=== PATIENT | female | born 1955 | race Caucasian/White ===

== ENCOUNTER 2020-10-15 13:35 | Inpatient (IN) | payer OTHER ==
[2020-10-15] MEDS ORDERED: NA CHLORIDE 0.9% 1,000 ML ONE (15:08)
[2020-10-15] MEDS ORDERED: dexAMETHasone 10 MG/ML VIAL ONE (15:08)
[2020-10-15] MEDS ORDERED: MAGNESIUM SULFATE 1 gm IVPB 1 GM/100 ML BAG IV ONE (15:08)
[2020-10-15] MEDS ORDERED: ALBUTEROL INHALER 60 PUFF/8 GM IH ONE (15:14)
[2020-10-15 15:27] LABS: Absolute Lymphocytes (CBC) 0.7 K/uL (0.7-4.9); Basophils % 0.1 % (0-1.3); Hematocrit 35.9 % (36.0-45.0); Lymphocytes % 7.5 % (15.3-44.8); MPV 7.1 fL (7.6-11.3); Protime INR 1.16; RBC Red Blood Cell Count 4.47 M/uL (3.86-4.86)
[2020-10-15 15:47] LABS: ALT/SGPT 38 U/L (12-78); AST/SGOT 48 U/L (15-37); Albumin 2.8 g/dL (3.4-5.0); Alkaline Phosphatase 70 U/L (45-117); BUN Blood Urea Nitrogen 16 mg/dL (7-18); Bicarbonate 25 mmol/L (21-32); Bilirubin Direct 0.2 mg/dL (0-0.2); Bilirubin Total 0.6 mg/dL (0.2-1.0); Glucose Level 91 mg/dL (74-106); Magnesium 2.3 mg/dL (1.8-2.4); NT PRO-BNP 446 pg/mL (<125); Potassium 3.6 mmol/L (3.5-5.1); Protein, Total 7.9 g/dL (6.4-8.2); Sodium Level 135 mmol/L (136-145); Troponin (Emerg Dept Use Only) < 0.02 ng/mL (0.0-0.045)
--- NOTE | 2020-10-15 16:45 | RAD REPORT ---
EXAM DESCRIPTION: RAD - Chest Single View - 10/15/2020 4:26 pm CLINICAL HISTORY: COUGH COMPARISON: None TECHNIQUE: AP portable chest image was obtained 10/15/2020 4:26 pm . FINDINGS: Peripheral airspace opacification is present in the right upper lobe. Interstitial and pat abril alveolar opacities are present in the right lower lung field. Slightly more pronounced interstiti al and alveolar opacification seen in the mid and lower left lung field. Trachea is midline. Right he midiaphragm elevation noted. Heart and vasculature are normal. No measurable pleural effusion and no pneumothorax. No acute bony abnormality seen. No acute aortic findings suspected. IMPRESSION: Bilateral pneumonia pattern is present. In the current clinical environment, COVID-19 pneumonia would be a primary consideration.
[2020-10-15 17:36] LABS: SARS-COV-2 RT PCR POSITIVE (NEGATIVE)
--- NOTE | 2020-10-15 18:27 | ER ---
Nurse's Notes [facility] Name: Henri Holloway Age: 65 yrs Sex: Female : 1955 Arrival Date: 10/15/2020 Time: 14:23 Bed 3 Private MD: Diagnosis: Coronavirus infection, unspecified;Hypoxia Presentation: 10/15 14:24 Chief complaint: EMS states: nausea and fatigue x 1 week. Pt reports that her PCP is ss not testing her for COVID, but is treating her for it because she has all of the typical symptoms. PT reports she also has a fever and took Tylenol last at 1000. Coronavirus screen: Client denies travel out of the [place] in the last 14 days. Ebola Screen: Patient denies exposure to infectious person. Patient denies travel to an Ebola-affected area in the 21 days before illness onset. Initial Sepsis Screen: Does the patient meet any 2 criteria? No. Patient's initial sepsis screen is negative. Does the patient have a suspected source of infection? No. Patient's initial sepsis screen is negative. Risk Assessment: Do you want to hurt yourself or someone else? Patient reports no desire to harm self or others. Onset of symptoms is unknown. 14:24 Method Of Arrival: EMS: [facility] 14:24 Acuity: EDDIE 3 ss Historical: - Allergies: 18:30 No Known Allergies; tw2 - Home Meds: 18:30 hydroxychloroquine 200 mg oral tab [Active]; tw2 - PMHx: 18:30 None; tw2 - Immunization history:: Adult Immunizations up to date. - Social history:: Smoking status: Patient denies any tobacco usage or history of. Screenin:07 Abuse screen: Denies threats or abuse. Nutritional screening: No deficits noted. tw2 Tuberculosis screening: No symptoms or risk factors identified. Fall Risk None identified. Assessment: 14:29 Reassessment: provider at bedside at this time. tw2 15:20 General: Appears in no apparent distress. slender, well groomed, Behavior is calm, tw2 cooperative, appropriate for age. Pain: Complains of pain in body aches/chills. Neuro: Level of Consciousness is awake, alert, obeys commands, Oriented to person, place, time, situation. Cardiovascular: Patient's skin is warm and dry. Respiratory: Reports shortness of breath at rest on exertion cough that is non-productive, dry, hacking, Airway is patent Respiratory effort is even, unlabored, Respiratory pattern is regular, symmetrical. GI: Abdomen is flat, Reports intolerance of fluids, intolerance of food, nausea. : No signs and/or symptoms were reported regarding the genitourinary system. EENT: No signs and/or symptoms were reported regarding the EENT system. Derm: No signs and/or symptoms reported regarding the dermatologic system. Musculoskeletal: Range of motion: intact in all extremities. 15:42 Reassessment: Patient appears in no apparent distress at this time. No changes from tw2 previously documented assessment. Patient and/or family updated on plan of care and expected duration. Pain level reassessed. Patient is alert, oriented x 3, equal unlabored respirations, skin warm/dry/pink. 16:30 Reassessment: Patient appears in no apparent distress at this time. No changes from hb previously documented assessment. Patient and/or family updated on plan of care and expected duration. Pain level reassessed. Patient is alert, oriented x 3, equal unlabored respirations, skin warm/dry/pink. 17:40 Reassessment: Patient appears in no apparent distress at this time. Patient and/or hb family updated on plan of care and expected duration. Pain level reassessed. Patient is alert, oriented x 3, equal unlabored respirations, skin warm/dry/pink. 18:22 Reassessment: Patient appears in no apparent distress at this time. Patient and/or hb family updated on plan of care and expected duration. Pain level reassessed. Patient is alert, oriented x 3, equal unlabored respirations, skin warm/dry/pink. 21:05 Reassessment: Che RN admitting nurse will call back. Vital Signs: 14:24 BP 137 / 74; Pulse 99; Resp 19; Temp 101.5(TE); Pulse Ox 95% on R/A; Weight 63.96 kg; ss Height 5 ft. 5 in. (165.10 cm); Pain 0/10; 15:42 BP 147 / 63; Pulse 105; Resp 26; Pulse Ox 100% on 2 lpm NC; tw2 16:43 BP 118 / 58; Pulse 104; Resp 24; Pulse Ox 95% on 2 lpm NC; tw2 17:32 BP 135 / 70; Pulse 95; Resp 23; Temp 101.4(O); Pulse Ox 89% on R/A; dh3 17:33 Pulse Ox 94% 2 lpm ; dh3 18:22 BP 136 / 74; Pulse 99; Resp 17; Pulse Ox 93% on 2 lpm NC; hb 14:24 Body Mass Index 23.46 (63.96 kg, 165.10 cm) ED Course: 14:23 Patient arrived in ED. ss 14:23 Ren Oh PA is PHCP. [facility] 14:23 Hector Santana MD is Attending Physician. m 14:24 Arm band placed on right wrist. ss 14:24 Bed in low position. Call light in reach. Side rails up X 1. satellite project site monitor on. Pulse tw2 ox on. NIBP on. 14:26 Triage completed. ss 15:00 EKG done, by ED staff, reviewed by Ren KING. 3 15:04 Carin Busby, TO is Primary Nurse. tw2 15:05 First set of blood cultures drawn by me. Inserted saline lock: 20 gauge in right 3 antecubital area, using aseptic technique. Blood collected. 15:10 Initial lab(s) drawn, by mt, sent to lab. Second set of blood cultures drawn by me. 3 16:26 XRAY Chest (1 view) In Process Unspecified. EDMS 17:07 Basic Metabolic Panel Sent. ss 18:26 Diamante Salmon MD is Hospitalizing Provider. [facility] 19:14 Primary Nurse role handed off by Carin Busby, TO mw2 20:53 No provider procedures requiring assistance completed. IV is patent, with fluids rv infusing freely, Patient admitted, IV remains in place. 21:30 Kishore Merrill RN is Primary Nurse. rv Administered Medications: 14:55 CANCELLED (medication changed): Xopenex (3) 1.25 mg Inhalation once tw2 15:15 Drug: Decadron - Dexamethasone 10 mg Route: IVP; Site: right antecubital; tw2 17:41 Follow up: Response: No adverse reaction tw2 15:20 Drug: Magnesium Sulfate 1 grams Route: IVPB; Infused Over: 1 hrs; Site: right tw2 antecubital; 16:20 Follow up: Response: No adverse reaction; IV Status: Completed infusion; IV Intake: tw2 100ml 15:20 Drug: NS 0.9% 1000 ml Route: IV; Rate: 1 bolus; Site: right antecubital; tw2 16:30 Follow up: Response: No adverse reaction; IV Status: Completed infusion; IV Intake: tw2 1000ml 15:25 Drug: Albuterol HFA Inhaler 2 puffs Route: Inhalation; tw2 Intake: 16:20 IV: 100ml; Total: 100ml. tw2 16:30 IV: 1000ml; Total: 1100ml. tw2 Outcome: 18:26 Decision to Hospitalize by Provider. jmm 20:53 Admitted to Tele accompanied by tech, via wheelchair, room 404, Other SBAR, EKG rv 20:53 Condition: good 20:53 Instructed on the need for admit. 21:36 Patient left the ED. rv Signatures: Dispatcher [employer] EDMS Ren Oh PA PA jmm Smirch, Shelby RN RN Berna Samuel RN RN hb Wise, Tara, RN RN [facility] Verenice Mccall [facility] Donny Tripp RN TO Estevan Petty 2 Kishore Merrill RN RN rv Corrections: (The following items were deleted from the chart) 15:30 13:25 Albuterol HFA Inhaler 2 puffs Inhalation tw2 tw2
--- NOTE | 2020-10-15 18:27 | EDPHYS ---
Physician Documentation [facility] Name: Henri Holloway Age: 65 yrs Sex: Female : 1955 Arrival Date: 10/15/2020 Time: 14:23 Bed 3 Private MD: ED Physician Hector Santana HPI: 10/15 15:13 This 65 yrs old Female presents to ER via EMS with complaints of Nausea, jmm fatigue. 15:13 The patient presents to the emergency department with nausea, diarrhea. Onset: The jmm symptoms/episode began/occurred gradually, 1 week(s) ago. Possible causes: viral infection. The symptoms are aggravated by nothing. This is a 65 year old female with no chronic medical conditions that presents to the ED with complaints of diarrhea, weakness, shortness of breath beginning approx 1 week ago. Patient is currently on oral abx. Not on steroids. . Historical: - Allergies: 18:30 No Known Allergies; tw2 - Home Meds: 18:30 hydroxychloroquine 200 mg oral tab [Active]; tw2 - PMHx: 18:30 None; tw2 - Immunization history:: Adult Immunizations up to date. - Social history:: Smoking status: Patient denies any tobacco usage or history of. ROS: 15:13 Cardiovascular: Negative for chest pain, palpitations, and edema, Respiratory: Negative jmm for shortness of breath, cough, wheezing, and pleuritic chest pain. 15:13 Constitutional: Positive for fatigue, poor PO intake. 15:13 Respiratory: Positive for cough, shortness of breath. 15:13 Abdomen/GI: Positive for nausea, diarrhea. 15:13 All other systems are negative. Exam: 14:59 ECG was reviewed by the Attending Physician. jmm 15:13 Constitutional: This is a well developed, well nourished patient who is awake, alert, jmm and in no acute distress. Head/Face: atraumatic. Eyes: EOMI, no conjunctival erythema appreciated ENT: Moist Mucus Membranes Neck: Trachea midline, Supple Chest/axilla: Normal chest wall appearance and motion. Cardiovascular: Regular rate and rhythm. No edema appreciated Respiratory: Normal respirations, no respiratory distress appreciated Abdomen/GI: Non distended, soft Back: Normal ROM Skin: General appearance color normal MS/ Extremity: Moves all extremities, no obvious deformities appreciated, no edema noted to the lower extremities Neuro: Awake and alert, normal gait Psych: Behavior is normal, Mood is normal, Patient is cooperative and pleasant Vital Signs: 14:24 BP 137 / 74; Pulse 99; Resp 19; Temp 101.5(TE); Pulse Ox 95% on R/A; Weight 63.96 kg; ss Height 5 ft. 5 in. (165.10 cm); Pain 0/10; 15:42 BP 147 / 63; Pulse 105; Resp 26; Pulse Ox 100% on 2 lpm NC; tw2 16:43 BP 118 / 58; Pulse 104; Resp 24; Pulse Ox 95% on 2 lpm NC; tw2 17:32 BP 135 / 70; Pulse 95; Resp 23; Temp 101.4(O); Pulse Ox 89% on R/A; dh3 17:33 Pulse Ox 94% 2 lpm ; dh3 18:22 BP 136 / 74; Pulse 99; Resp 17; Pulse Ox 93% on 2 lpm NC; hb 14:24 Body Mass Index 23.46 (63.96 kg, 165.10 cm) ss MDM: 14:36 Patient medically screened. [facility] 18:23 Data reviewed: vital signs, nurses notes. Counseling: I had a detailed discussion with [facility] the patient and/or guardian regarding: the historical points, exam findings, and any diagnostic results supporting the discharge/admit diagnosis, lab results, radiology results, the need for further work-up and treatment in the hospital. ED course: I discussed the patient with Dr. Stenr whom accepted the patient due to hypoxia. . 10/15 14:36 Order name: Basic Metabolic Panel [facility] 10/15 14:36 Order name: CBC with Diff; Complete Time: 21:36 [facility] 10/15 14:36 Order name: LFT's; Complete Time: 16:12 [facility] 10/15 14:36 Order name: Magnesium; Complete Time: 16:12 [facility] 10/15 14:36 Order name: NT PRO-BNP; Complete Time: 16:12 [facility] 10/15 14:36 Order name: PT-INR; Complete Time: 15:40 [facility] 10/15 14:36 Order name: Troponin (emerg Dept Use Only); Complete Time: 16:12 [facility] 10/15 14:37 Order name: Basic Metabolic Panel; Complete Time: 16:12 [facility] 10/15 14:42 Order name: Procalcitonin; Complete Time: 16:26 [facility] 10/15 14:42 Order name: Lactate; Complete Time: 15:40 [facility] 10/15 14:42 Order name: Blood Culture Adult (2) [facility] 10/15 14:54 Order name: COVID-19 : Document "Date of Symptom Onset" if Symptomatic. [facility] 10/15 14:36 Order name: XRAY Chest (1 view); Complete Time: 16:55 [facility] 10/15 14:36 Order name: EKG; Complete Time: 14:37 [facility] 10/15 14:36 Order name: Cardiac monitoring; Complete Time: 15:16 [facility] 10/15 14:36 Order name: EKG - Nurse/Tech; Complete Time: 15:05 [facility] 10/15 14:36 Order name: IV Saline Lock; Complete Time: 15:05 [facility] 10/15 14:36 Order name: Labs collected and sent; Complete Time: 15:15 [facility] 10/15 14:36 Order name: O2 Per Protocol; Complete Time: 15:05 [facility] 10/15 14:36 Order name: O2 Sat Monitoring; Complete Time: 15:06 [facility] 10/15 17:30 Order name: Diet Regular; Complete Time: 17:31 10/15 17:30 Order name: COVID-19/FLU A+B; Complete Time: 17:37 [facility] 08 21:30 Order name: Manual Differential; Complete Time: 21:36 [facility] 08 17:08 Order name: Vital Signs; Complete Time: 17:40 jmm EC:59 Rate is 93 beats/min. Rhythm is regular. QRS [place] is Normal. [place] interval is normal. QRS jmm interval is normal. QT interval is normal. No Q waves. T waves are Normal. No ST changes noted. Reviewed by me. Administered Medications: 14:55 CANCELLED (medication changed): Xopenex (3) 1.25 mg Inhalation once tw2 15:15 Drug: Decadron - Dexamethasone 10 mg Route: IVP; Site: right antecubital; tw2 17:41 Follow up: Response: No adverse reaction tw2 15:20 Drug: Magnesium Sulfate 1 grams Route: IVPB; Infused Over: 1 hrs; Site: right tw2 antecubital; 16:20 Follow up: Response: No adverse reaction; IV Status: Completed infusion; IV Intake: tw2 100ml 15:20 Drug: NS 0.9% 1000 ml Route: IV; Rate: 1 bolus; Site: right antecubital; tw2 16:30 Follow up: Response: No adverse reaction; IV Status: Completed infusion; IV Intake: tw2 1000ml 15:25 Drug: Albuterol HFA Inhaler 2 puffs Route: Inhalation; tw2 Disposition: 10/15/20 18:26 Hospitalization ordered by Diamante Salmon for Observation. Preliminary diagnosis are Coronavirus infection, unspecified, Hypoxia. - Bed requested for Telemetry/MedSurg (observation). - Status is Observation. rv - Condition is Stable. - Problem is new. - Symptoms are unchanged. Addendum: 10/23/2020 18:55 Co-signature as Attending Physician, Hector Santana MD. r n Signatures: Dispatcher [employer] EDCA Ren Oh PA PA [facility] Hector Santana MD MD rn Smirch, Shelby, RN RN ss Alvina Moran RN RN Carin Busby RN RN tw2 Kishore Merrill, RN RN rv Corrections: (The following items were deleted from the chart) 10/15 14:55 14:42 Xopenex (3) 1.25 mg Inhalation once ordered. [facility] tw2 16:19 14:42 Influenza Screen (A \\T\\ B)+BA.LAB.BRZ ordered. EDCA EDMS 16:20 14:55 CORONAVIRUS ordered. [facility] EDMS 20:42 18:26 Hospitalization Ordered by Diamante Salmon MD for Observation. Preliminary cg diagnosis is Coronavirus infection, unspecified; Hypoxia. Bed requested for Telemetry/MedSurg (observation). Status is Observation. Condition is Stable. Problem is new. Symptoms are unchanged. [facility] 21:36 20:42 10/15/2020 18:26 Hospitalization Ordered by Diamante Salmon MD for Observation. rv Preliminary diagnosis is Coronavirus infection, unspecified; Hypoxia. Bed requested for Telemetry/MedSurg (observation). Status is Observation. Condition is Stable. Problem is new. Symptoms are unchanged. cg
[2020-10-15] MEDS ORDERED: ALBUTEROL INHALER 60 PUFF/8 GM IH PRN (20:10)
[2020-10-15] MEDS ORDERED: AZITHROMYCIN IV 500 MG in NA CHLORIDE 0.9% 250 ML IVPB ONE (20:16)
[2020-10-15] MEDS ORDERED: CEFTRIAXONE 1 GM/NS 50 ML 1 GM/50 ML BAG IV SCH (20:24)
--- NOTE | 2020-10-15 20:29 | P.HP ---
Certification for Inpatient Patient will require the following post-hospital care: None Practitioner: I am a practitioner with admitting privileges, knowledge of patient current condition, hospital course, and medical plan of care. Services: Services provided to patient in accordance with Admission requirements found in Title 42 Section 412.3 of the Code of Federal Regulations Patient History Date of Service: 10/15/20 Reason for admission: covid 19 disease History of Present Illness: 65 y o female pt admitted for management of covid 19 disease. she had c/o fever, chills, rigor, sob and cough for a while. she was diagnosed with covid 19 disease and she was started on hydroxychloroquine by her PCP but she did not get better. she decided to come to the ER for evaluation. In the ED, she had CXR german t was concerning for viral pneumonia and she was significantly hypoxic. she was started on empiric oxygen therapy for resp failure with hypoxia and she was admitted for inpt care. Allergies No Known Allergies Allergy (Unverified 10/15/20 22:25) Home Medications: NK [No Home Meds] 10/16/20 Review of Systems General: Fever, Chills, Weakness Eyes: Unremarkable Respiratory: Cough, Shortness of Breath, SOB with Excertion Cardiovascular: Chest Pain Gastrointestinal: Unremarkable Genitourinary: Unremarkable Integumentary: Unremarkable Neurological: Unremarkable Physical Examination - Physical Exam General: Alert, Oriented x3 HEENT: Atraumatic, Normocephalic Neck: Supple Respiratory: Diminished Cardiovascular: No edema, Regular rate/rhythm, Normal S1 S2 Gastrointestinal: Normal bowel sounds Musculoskeletal: No swelling Neurological: Normal speech, Normal strength at 5/5 x4 extr, Cranial nerves 3-12 intact - Studies Laboratory Data (last 24 hrs) 10/15/20 15:10: PT 13.4 H, INR 1.16 10/15/20 15:10: WBC 9.20, Hgb 12.3, Hct 35.9 L, Plt Count 277 10/15/20 15:10: Sodium 135 L, Potassium 3.6, BUN 16, Creatinine 0.74, Glucose 91, Magnesium 2.3, Total Bilirubin 0.6, AST 48 H, ALT 38, Alkaline Phosphatase 70 Assessment and Plan - Plan 1.COVID 19 disease-Diagnosed as outpt. we will start dexamethasone and zinc, vit c, she will be evaluated for possibility of remdesivir therapy. 2.Resp failure with hypoxia-on supplemental oxygen. we will have breathing treatment on board. we will wean off oxygen as tolerated. 3.Pneumonia-suspected based on clinical presentation. we will start empiric antibiotics of azithromycin and ceftriaxone. Discharge Plan: Home - Advance Directives Does patient have a Living Will: No Does patient have a Durable POA for Healthcare: No - Code Status/Comfort Care Code Status: Full Code
[2020-10-15 21:30] LABS: Blood Morphology Comment NOT SEEN (NOT SEEN); Platelet Estimate ADEQ
[2020-10-15] MEDS ORDERED: ZOLPIDEM TARTRATE 5 MG TABLET PO PRN (21:42)
[2020-10-15] MEDS ORDERED: ACETAMINOPHEN 500 MG TAB PO PRN (21:42)
[2020-10-15] MEDS ORDERED: dexAMETHasone 10 MG/ML VIAL IV SCH (22:00)
[2020-10-15 22:10] VITALS: BMI 23.6
[2020-10-15] MEDS ORDERED: CEFTRIAXONE/SWI 1gm 1 GM/10 ML SYR IV SCH (23:00)
[2020-10-16 04:24] LABS: Absolute Lymphocytes (CBC) 0.4 K/uL (0.7-4.9); Basophils % 0.1 % (0-1.3); Hematocrit 34.6 % (36.0-45.0); MPV 7.2 fL (7.6-11.3); RBC Red Blood Cell Count 4.36 M/uL (3.86-4.86)
[2020-10-16 04:46] LABS: Albumin 2.6 g/dL (3.4-5.0); Bilirubin Total 0.4 mg/dL (0.2-1.0); Protein, Total 7.6 g/dL (6.4-8.2)
[2020-10-16] MEDS: INSULIN -REGULAR HUMAN 50 UNIT/0.5 ML ML SQ SCH ×4 (07:30→21:00)
[2020-10-16] MEDS: ASCORBIC ACID 500 MG TABLET PO SCH (08:01)
[2020-10-16] MEDS: ZINC SULFATE 220 MG CAP PO SCH (08:01)
[2020-10-16] MEDS: ENOXAPARIN 40 MG/0.4 ML SQ SCH ×2 (08:02→08:07)
[2020-10-16] MEDS ORDERED: CEFTRIAXONE 1 GM/NS 50 ML 1 GM/50 ML BAG IV SCH (09:00)
[2020-10-16] MEDS: dexAMETHasone 10 MG/ML VIAL IV SCH (17:14)
--- NOTE | 2020-10-16 18:43 | EKG ---
Test Date: 2020-10-15 Test Time: 14:55:35 Curb Attendant: DAVID MEASUREMENT RESULTS: Intervals: Rate: 93 VT: 158 QRSD: 90 QT: 342 QTc: 425 Guin: P: 54 VT: 158 QRS: 53 T: 70 INTERPRETIVE STATEMENTS: Normal sinus rhythm Normal ECG Compared to ECG 09/17/1994 16:25:00 Sinus arrhythmia no longer present Electronically Signed On 10-16-20 18:40:28 CHAIN DYER by Jovi Thompson
--- OUTSIDE RECORDS SUMMARY | 2020-10-16 23:00 | XMS REPORT | Clinical Summary ---
:1955 Author Organization [facility] Address [address] [place] [address] Care Team Providers Name Role Phone Asked, Pcp Primary Care Provider Unavailable Allergies No Known Active Allergies Medications Medication Sig Dispensed Refills Start Date End Date Status ascorbic acid, vitamin Take 1,000 mg by 0 Active C, (vitamin C) 100 MG mouth daily. tablet cholecalciferol, vitamin Take 1,000 Units 0 Active D3, 1,000 unit tablet by mouth daily. zinc 50 mg tablet Take 50 mg by 0 Active mouth 2 (two) times a day. rosuvastatin (CRESTOR) 5 Take 5 mg by 0 Active mg tablet mouth daily. calcium Chew. 0 Active carbonate-vitamin D3 (Calcium 600 with Vitamin D3) 600 mg(1,500mg) -400 unit tablet,chewable Active Problems Not on file Encounters Date Type Specialty Care Team Description 08/09/2020 Hospital Encounter Radiology Jason Harrington MD 08/09/2020 Office Visit Neurosurgery Jason Harrington MD Cervical spondylosis with myelopathy (Primary Dx) 08/09/2020 Travel 07/27/2020 Travel 07/12/2020 Travel after 10/16/2019 Surgical History Surgery Date Site/Laterality Comments LAMINECTOMY AND MICRODISCECTOMY LUMBAR 09/07/1999 - 09/06/2000 SPINE Family History Medical History Relation Name Comments Heart disease Father Leukemia Father Heart disease Mother Relation Name Status Comments Father Mother Social History Tobacco Use Types Packs/Day Years Used Date Never Smoker Smokeless Tobacco: Never Used Alcohol Use Drinks/Week oz/Week Comments Defer Sex Assigned at Date Recorded Not on file Job Start Date Occupation Industry Not on file Not on file Not on file Last Filed Vital Signs Vital Sign Reading Time Taken Comments Blood Pressure 125/83 08/09/2020 11:06 AM [employer] Pulse - - Temperature - - Respiratory Rate - - Oxygen Saturation - - Inhaled Oxygen Concentration - - Weight 65.8 kg (145 lb) 08/09/2020 11:06 AM [employer] Height 165.1 cm (5' 5") 08/09/2020 11:06 AM [employer] Body Mass Index 24.13 08/09/2020 11:06 AM [employer] Plan of Treatment Health Maintenance Due Date Last Done Comments COVID-19 VACCINE (1 of 2) 1969 HEPATITIS C SCREENING 1971 BREAST CANCER SCREENING 2003 COLONOSCOPY SCREENING 2003 SHINGLES VACCINES (#1) 2003 65+ PNEUMOCOCCAL VACCINE (1 of 1 - PPSV23) 2018 INFLUENZA VACCINE 04/07/2020 Results Not on fileafter 10/16/2019 Insurance Payer Benefit Plan / Subscriber ID Effective Dates Phone Addre ss Type Group MEDICARE MEDICARE PART A [id number] 2018-Present [place], [place] Medicare AND B Guarantor Name Account Type Relation to Date of Phone Billing Patient Address Henri Holloway Personal/Family Self 1955 [address] [facility] (Home) [place] [address] Henri Holloway [employer] Party Self 1955 [address] [facility] [employer] (Home) [place] [address] Advance Directives For more information, please contact: [phone] Type Date Recorded Patient Campus Chaplain Explanati on Advance Directives, Living Will and Medical Power of Director Energy
--- OUTSIDE RECORDS SUMMARY | 2020-10-16 23:00 | XMS REPORT | Continuity of Care Document ---
:1955 Author Organization [facility] t Address [address] [place] [address] Care Team Providers Name Role Phone Asked, Pcp Primary Care Physician Unavailable Ben Harrington MD Attending Clinician Payers Payer Name Policy Type Policy Effective Date Expiration Date Sour ce Number MEDICAREMEDICARE PART [id number] 2018 Wiliam Orellana AND 00:00:00 [facility] [id number] [place] [facility] [place] This patient has no known problems. Allergies, Adverse Reactions, Alerts This patient has no known allergies or adverse reactions. Family History Family Member Diagnosis Comments Start Date Stop Date Source Natural father Heart disease [place] [facility] Natural father Leukemia [facility] Natural mother Heart disease [facility] Social History Social Habit Start Date Stop Date Quantity Comments Source Sex Assigned At [facility]i Tobacco use and 2020-08-09 2020-08-09 Never used [facility]ist exposure 00:00:00 00:00:00 Alcohol intake 2020-08-09 2020-08-09 [facility] thodist 00:00:00 00:00:00 Smoking Status Start Date Stop Date Source Never smoker [facility] Medications Ordered Filled Start Stop Current Ordering Indication Dosage Frequency Signature Comments Components Source Medication Medication Date Date Medication? Clinician (SIG) Name Name ascorbic 2019-09 Yes 1000mg QD Take 1,000 [place] acid, 2-03 mg by [facility] vitamin C, 11:11: mouth st (vitamin C) 00 daily. 100 MG tablet cholecalcif 2019-09 Yes 1000U QD Take 1,000 [place] александр, 2-03 Units by [facility] vitamin D3, 11:11: mouth st 1,000 unit 00 daily. tablet zinc 50 mg 2019-09 Yes 50mg Q.5D Take 50 mg [place] tablet 03 by mouth 2 [facility] 11:11: (two) st 00 times a day. rosuvastati 2019-09 Yes 5mg QD Take 5 mg [place] n (CRESTOR) 10-10 by mouth Meth tika 5 mg tablet 11:11: daily. st 00 calcium 2019-09 Yes Chew. [place] carbonate-v 10-10 [facility] itamin D3 11:11: st (Calcium 00 600 with Vitamin D3) 600 mg(1,500mg) -400 unit tablet,chew able Vital Signs Vital Name Observation Time Observation Value Comments Source Systolic blood 2020-08-09 11:06:00 125 mm[Hg] [facility] pressure Diastolic blood 2020-08-09 11:06:00 83 mm[Hg] Cherie boss [facility] pressure Body height 2020-08-09 11:06:00 165.1 cm Bucky Mcconnell Body weight 2020-08-09 11:06:00 65.772 kg Bucky Mcconnell BMI 2020-08-09 11:06:00 24.13 kg/m2 [place] [facility] Procedures This patient has no known procedures. Plan of Care Planned Activity Planned Date Details Comments Source Future Scheduled 2020-04-07 INFLUENZA VACCINE [facility] Test 00:00:00 [code = INFLUENZA VACCINE] Future Scheduled 2018 65+ PNEUMOCOCCAL [place] [facility] Test 00:00:00 VACCINE (1 of 1 - PPSV23) [code = 65+ PNEUMOCOCCAL VACCINE (1 of 1 - PPSV23)] Future Scheduled 2003 [facility] [code = BREAST CANCER SCREENING] Future Scheduled 2003 COLONOSCOPY SCREENING [facility] [employer] [facility] Test 00:00:00 [code = COLONOSCOPY SCREENING] Future Scheduled 2003 SHINGLES VACCINES (#1) [place] [facility] Test 00:00:00 [code = SHINGLES VACCINES (#1)] Future Scheduled 1971 Hepatitis C screening [facility] [employer] [facility] Test 00:00:00 (procedure) [code = 548926251] Future Scheduled 1969 COVID-19 VACCINE (1 of [facility] [place] [facility] Test 00:00:00 2) [code = COVID-19 VACCINE (1 of 2)] Encounters Start End Encounter Admission Attending Care Care Encounter Source Date/Time Date/Time Type Type Clinicians Facility Department ID 2020-08-09 2020-08-09 Outpatient [facility] [id number] [place] 00:00:00 00:00:[address] 2020-08-09 2020-08-09 Outpatient [facility] [id number] [place] 00:00:00 00:00:[address] Results This patient has no known results.
[2020-10-17] MEDS: INSULIN -REGULAR HUMAN 50 UNIT/0.5 ML ML SQ SCH ×4 (07:30→20:45)
[2020-10-17] MEDS: ZINC SULFATE 220 MG CAP PO SCH (08:48)
[2020-10-17] MEDS: ASCORBIC ACID 500 MG TABLET PO SCH (08:48)
[2020-10-17] MEDS: ENOXAPARIN 40 MG/0.4 ML SQ SCH (08:50)
[2020-10-17] MEDS: dexAMETHasone 10 MG/ML VIAL IV SCH (17:43)
[2020-10-18 05:31] LABS: Absolute Lymphocytes (CBC) 0.5 K/uL (0.7-4.9); Basophils % 0.1 % (0-1.3); Hematocrit 33.2 % (36.0-45.0); Lymphocytes % 5.9 % (15.3-44.8); MPV 7.3 fL (7.6-11.3); RBC Red Blood Cell Count 4.08 M/uL (3.86-4.86)
[2020-10-18 05:51] LABS: Albumin 2.4 g/dL (3.4-5.0); Bilirubin Total 0.4 mg/dL (0.2-1.0); C-Reactive Protein 38.9 mg/L (<3.00); Ferritin 575.2 ng/mL (8-388); Magnesium 2.7 mg/dL (1.8-2.4); Phosphorus 4.4 mg/dL (2.5-4.9); Potassium 4.2 mmol/L (3.5-5.1); Protein, Total 6.9 g/dL (6.4-8.2)
[2020-10-18] MEDS: INSULIN -REGULAR HUMAN 50 UNIT/0.5 ML ML SQ SCH ×4 (07:30→21:00)
[2020-10-18] MEDS: ENOXAPARIN 40 MG/0.4 ML SQ SCH ×2 (08:25→08:44)
[2020-10-18] MEDS: ASCORBIC ACID 500 MG TABLET PO SCH (08:25)
[2020-10-18] MEDS: ZINC SULFATE 220 MG CAP PO SCH (08:25)
[2020-10-18] MEDS: dexAMETHasone 10 MG/ML VIAL IV SCH (17:10)
[2020-10-19 06:56] LABS: Absolute Lymphocytes (CBC) 0.7 K/uL (0.7-4.9); Basophils % 0.1 % (0-1.3); Hematocrit 37.9 % (36.0-45.0); Lymphocytes % 7.4 % (15.3-44.8); MPV 6.9 fL (7.6-11.3); RBC Red Blood Cell Count 4.72 M/uL (3.86-4.86)
[2020-10-19 07:13] LABS: BUN Blood Urea Nitrogen 16 mg/dL (7-18); Bicarbonate 26 mmol/L (21-32); Ferritin 518.3 ng/mL (8-388); Glucose Level 104 mg/dL (74-106); Magnesium 2.7 mg/dL (1.8-2.4); NT PRO-BNP 393 pg/mL (<125); Phosphorus 3.9 mg/dL (2.5-4.9); Potassium 4.2 mmol/L (3.5-5.1); Sodium Level 138 mmol/L (136-145)
[2020-10-19] MEDS: INSULIN -REGULAR HUMAN 50 UNIT/0.5 ML ML SQ SCH ×4 (07:30→21:00)
[2020-10-19] MEDS: ENOXAPARIN 40 MG/0.4 ML SQ SCH (09:00)
[2020-10-19] MEDS: ASCORBIC ACID 500 MG TABLET PO SCH (09:00)
[2020-10-19] MEDS: ZINC SULFATE 220 MG CAP PO SCH (09:19)
--- NOTE | 2020-10-19 16:16 | RAD REPORT ---
EXAM DESCRIPTION: CT - Chest For Pe Angio - 10/19/2020 4:05 pm CLINICAL HISTORY: Chest pain. covid; HYPOXEMIA; sob COMPARISON: Chest Single View dated 10/15/2020 TECHNIQUE: CT angiogram of the pulmonary arteries was performed with MIP. All CT scans are performed using dose optimization technique as appropriate and may include automated exposure control or mA/KV adjustment according to patient size. FINDINGS: No evidence of pulmonary thromboembolism. No acute aortic finding demonstrated. Moderate interstitial and airspace opacity is seen throughout both lungs, greater on the right, likel y related to underlying COVID-19 infection. No significant pericardial or pleural fluid. No concerning bony finding. IMPRESSION: No evidence of pulmonary thromboembolism. Moderate opacities in both lungs, greater on the right, likely related to COVID-19 infection.
[2020-10-19] MEDS: ENOXAPARIN 60 MG/0.6 ML SQ SCH ×2 (16:38→22:50)
[2020-10-19] MEDS: dexAMETHasone 10 MG/ML VIAL IV SCH (17:11)
--- NOTE | 2020-10-19 22:53 | P.PN ---
Subjective Date of Service: 10/16/20 patient is feeling better. Patient denies any new complaints. However she does appear little more tachypneic and she also has decreasing oxygen saturation. We will continue to monitor closely. Review of Systems 10-point ROS is otherwise unremarkable Physical Examination - Vital Signs Temperature: 98.5 F Blood Pressure: 107/58 Pulse: 84 Respirations: 16 Pulse Ox (%): 95 - Physical Exam General: Alert, In no apparent distress, Oriented x3 Respiratory: Clear to auscultation bilaterally, Normal air movement Cardiovascular: Regular rate/rhythm, Normal S1 S2, No murmurs Gastrointestinal: Normal bowel sounds, Soft and benign, Non-distended, No tenderness, No rebound, No guarding Musculoskeletal: No tenderness - Studies Medications List Reviewed: Yes Assessment & Plan - Problems (Diagnosis) (1) Pneumonia due to COVID-19 virus Status: Acute - Plan Plan: 1. Monitor labs closely; we will need to monitor inflammatory markers 2. Continue with Dexamethasone 6 mg IVP daily 3. Holding anticoagulation at this time per patient's wishes 4. O2 per protocol; 5. Will go ahead start arrange for home oxygen 6. GI prophylaxis - Advance Directives Does patient have a Living Will: No Does patient have a Durable POA for Healthcare: No - Code Status/Comfort Care Code Status: Full Code
--- NOTE | 2020-10-19 22:56 | P.PN ---
Date of Service: 10/17/20 Subjective Patient is feeling better. Patient denies any new complaints. However she does appear little more tachypneic and she also has decreasing oxygen saturation. We will continue to monitor closely. Review of Systems 10-point ROS is otherwise unremarkable Physical Examination - Vital Signs Reviewed - Physical Exam General: Alert, In no apparent distress, Oriented x3 Respiratory: Clear to auscultation bilaterally, Normal air movement Cardiovascular: Regular rate/rhythm, Normal S1 S2, No murmurs Gastrointestinal: Normal bowel sounds, Soft and benign, Non-distended, No tenderness, No rebound, No guarding Musculoskeletal: No tenderness Assessment & Plan - Problems (Diagnosis) (1) Pneumonia due to COVID-19 virus Current Visit: Yes Status: Acute - Plan Plan: Continue with POC 1. Monitor labs closely 2. Dexamethasone 6 mg IVP daily 3. Patient refused anticoagulation at this time. Does not really want any additional medications that she has never really needed medications before. She has hemorrhoidal bleeding so does not want anticoagulants 4. O2 per protocol; 6. Check labs including ferritin, CRP, D-dimer, lactic acid, LDH, procalcitonin 7. GI prophylaxis
--- NOTE | 2020-10-19 22:58 | P.PN ---
Date of Service: 10/18/20 Subjective patient was scheduled to go home; however, oxygen requirements are increasing. She is satting about 86-89% on 4 L. I personally do not believe it is safe for her to go home. She really does not want to stay in the hospital any longer. She will probably need to leave against medical advice at this point. Review of Systems 10-point ROS is otherwise unremarkable Physical Examination - Vital Signs Reviewed - Physical Exam General: Alert, In no apparent distress, Oriented x3 Respiratory: Diminished with rhonchi at bases Cardiovascular: Regular rate/rhythm, Normal S1 S2, No murmurs Gastrointestinal: Normal bowel sounds, Soft and benign, Non-distended, No tenderness, No rebound, No guarding Musculoskeletal: No tenderness Assessment & Plan - Problems (Diagnosis) (1) Pneumonia due to COVID-19 virus Current Visit: Yes Status: Acute - Plan Plan: Continue with POC 1. Monitor labs closely 2. Dexamethasone 6 mg IVP daily 3. Patient still refusing anticoagulation at this time. No additional medications 4. O2 per protocol; 6. Check labs including ferritin, CRP, D-dimer, lactic acid, LDH, procalcitonin 7. GI prophylaxis
--- NOTE | 2020-10-19 23:02 | P.PN ---
Date of Service: 10/19/20 Subjective D-dimer elevated; patient willing to comply with requests for CT and additional testing Review of Systems 10-point ROS is otherwise unremarkable Physical Examination - Vital Signs Reviewed - Physical Exam General: Alert, In no apparent distress, Oriented x3 Respiratory: Basilar rhonchi Cardiovascular: Regular rate/rhythm, Normal S1 S2, No murmurs Gastrointestinal: Normal bowel sounds, Soft and benign, Non-distended, No tenderness, No rebound, No guarding Musculoskeletal: No tenderness Assessment & Plan - Problems (Diagnosis) (1) Pneumonia due to COVID-19 virus Current Visit: Yes Status: Acute - Plan Plan: Continue with POC 1. CT pending 2. Dexamethasone 6 mg IVP daily 3. Started lovenox 1mg/kg q12h 4. O2 per protocol; 6. Check labs including ferritin, CRP, D-dimer, lactic acid, LDH, procalcitonin 7. GI prophylaxis
[2020-10-20 06:28] LABS: Absolute Lymphocytes (CBC) 0.7 K/uL (0.7-4.9); Basophils % 0.1 % (0-1.3); Hematocrit 34.9 % (36.0-45.0); Lymphocytes % 8.5 % (15.3-44.8); MPV 6.8 fL (7.6-11.3); RBC Red Blood Cell Count 4.37 M/uL (3.86-4.86)
[2020-10-20 07:14] LABS: BUN Blood Urea Nitrogen 16 mg/dL (7-18); Bicarbonate 25 mmol/L (21-32); Ferritin 520.4 ng/mL (8-388); Glucose Level 114 mg/dL (74-106); Magnesium 2.5 mg/dL (1.8-2.4); NT PRO-BNP 255 pg/mL (<125); Phosphorus 4.3 mg/dL (2.5-4.9); Potassium 4.5 mmol/L (3.5-5.1); Sodium Level 138 mmol/L (136-145)
[2020-10-20] MEDS: INSULIN -REGULAR HUMAN 50 UNIT/0.5 ML ML SQ SCH ×4 (07:30→20:56)
[2020-10-20] MEDS: ENOXAPARIN 60 MG/0.6 ML SQ SCH ×2 (08:24→20:27)
[2020-10-20] MEDS: ZINC SULFATE 220 MG CAP PO SCH (08:24)
[2020-10-20] MEDS: ASCORBIC ACID 500 MG TABLET PO SCH (08:24)
[2020-10-20] MEDS: dexAMETHasone 10 MG/ML VIAL IV SCH (17:14)
[2020-10-21] MEDS: ASCORBIC ACID 500 MG TABLET PO SCH (07:44)
[2020-10-21] MEDS: ZINC SULFATE 220 MG CAP PO SCH (07:45)
[2020-10-21] MEDS: ENOXAPARIN 60 MG/0.6 ML SQ SCH (07:45)
[2020-10-21 14:19] VITALS: O2SAT 92
--- NOTE | 2020-11-05 05:37 | P.PN ---
Date of Service: 10/20/20 Subjective Patient is clinically doing well with no new complaints. Review of Systems 10-point ROS is otherwise unremarkable Physical Examination - Vital Signs Reviewed - Physical Exam General: Alert, In no apparent distress, Oriented x3 Respiratory: Basilar rhonchi Cardiovascular: Regular rate/rhythm, Normal S1 S2, No murmurs Gastrointestinal: Normal bowel sounds, Soft and benign, Non-distended, No tenderness, No rebound, No guarding Musculoskeletal: No tenderness Assessment & Plan - Problems (Diagnosis) (1) Pneumonia due to COVID-19 virus Current Visit: Yes Status: Acute - Plan Plan: Continue with POC 1. CT with bilateral infiltrates 2. Dexamethasone 6 mg IVP daily- start weaning off 3. Continue lovenox 1mg/kg q12h 4. O2 per protocol; 6. Monitor inflammatory markers 7. GI prophylaxis
--- NOTE | 2020-11-05 05:41 | P.DS ---
Discharge Date: 10/21/20 Disposition: ROUTINE DISCHARGE Discharge Condition: GOOD Reason for Admission: covid 19 disease - Problems (1) Pneumonia due to COVID-19 virus Status: Acute Brief History of Present Illness: Patient is a 65 yo female pt admitted for management of covid 19 disease. she had c/o fever, chills, rigor, sob and cough for a while. she was diagnosed with covid 19 disease and she was started on hydroxychloroquine by her PCP but she did not get better. she decided to come to the ER for evaluation. In the ED, she had CXR that was concerning for viral pneumonia and she was significantly hypoxic. she was started on empiric oxygen therapy for resp failure with hypoxia and she was admitted for inpt care. Hospital Course: Patient has been well during hospital stay. Currently on 2 L of oxygen. Arrange for home oxygen and discharged home with prednisone, inhaler, cough medication, and rhythmic 10. Outpatient followup. Return to the Emergency room if symptoms worsen Vital Signs/Physical Exam: Temp Pulse Resp BP Pulse Ox 98.2 F 84 18 113/79 92 10/21/20 12:00 10/21/20 12:00 10/21/20 12:00 10/21/20 12:00 10/21/20 12:00 General: Alert, In no apparent distress, Oriented x3 Laboratory Data at Discharge: WBC 8.80 K/uL (4.3-10.9) 10/20/20 06:10 Hgb 11.8 g/dL (12.0-15.0) L 10/20/20 06:10 Hct 34.9 % (36.0-45.0) L 10/20/20 06:10 Plt Count 452 K/uL (152-406) H 10/20/20 06:10 PT 13.4 SECONDS (9.5-12.5) H 10/15/20 15:10 INR 1.16 10/15/20 15:10 Sodium 138 mmol/L (136-145) 10/20/20 06:10 Potassium 4.5 mmol/L (3.5-5.1) 10/20/20 06:10 BUN 16 mg/dL (7-18) 10/20/20 06:10 Creatinine 0.48 mg/dL (0.55-1.3) L 10/20/20 06:10 Glucose 114 mg/dL (74-106) H 10/20/20 06:10 Phosphorus 4.3 mg/dL (2.5-4.9) 10/20/20 06:10 Magnesium 2.5 mg/dL (1.8-2.4) H 10/20/20 06:10 Total Bilirubin 0.4 mg/dL (0.2-1.0) 10/18/20 05:12 AST 52 U/L (15-37) H 10/18/20 05:12 ALT 81 U/L (12-78) H 10/18/20 05:12 Alkaline Phosphatase 65 U/L (45-117) 10/18/20 05:12 Home Medications: Albuterol Inhaler [Ventolin Inhaler*] 2 puff IH Q6H PRN #1 hfa.aer.ad 10/17/20 Benzonatate [Tessalon Perle] 200 mg PO TID #30 cap 10/17/20 Zinc Sulfate [Zinc Sulfate*] 220 mg PO DAILY #30 cap 10/17/20 predniSONE [Prednisone*] 20 mg PO BID #15 tab 10/17/20 Apixaban [Eliquis] 2.5 mg PO BID #14 tablet 10/20/20 New Medications: Apixaban [Eliquis] 2.5 mg PO BID #14 tablet predniSONE [Prednisone*] 20 mg PO BID #15 tab Benzonatate [Tessalon Perle] 200 mg PO TID #30 cap Albuterol Inhaler [Ventolin Inhaler*] 2 puff IH Q6H PRN #1 hfa.aer.ad PRN Reason: Shortness Of Breath Zinc Sulfate [Zinc Sulfate*] 220 mg PO DAILY #30 cap Diet: AHA Activity: Fall precautions Followup: Nicholas French MD [ACTIVE - CAN ADMIT] - 1-2 Weeks (vp data- call to schedule an appointment ) Giovanny Oshea MD [ACTIVE - CAN ADMIT] - 1-2 Weeks (PCP- call to schedule an appointment ) Time spent managing pt's care (in minutes): 35
[2020-11-05 05:43] VITALS: BP 107/58; TEMP 98.5
== END 2020-10-21 13:05 | disposition home or self-care (01) | DRG 177 ==
LOC: ER 13:35 → ERHOLD 20:06 → 4TH 20:56
PROVIDERS: ADMIT Internal Medicine; ATTEND Hospitalist
DX: U07.1 COVID-19 (principal); J12.82 Pneumonia due to coronavirus disease 2019; J96.01 Acute respiratory failure with hypoxia; Z79.899 Other long term (current) drug therapy
CPT/HCPCS: 0240U; 36415; 71045; 71275; 80048; 80053; 80076; 82607; 82728; 82947; 83605; 83735; 83880; 84100; 84145; 84484; 85025; 85379; 85610; 86140; 87040; 93005; 96365; 96375; 99285; J0456; J0696; J1100; J1650; J3475; J7030; J7050; Q9967